=== PATIENT | male | born 1975 | race Hispanic/Latino ===

== ENCOUNTER 2023-03-23 15:00 | Observation (INO) | payer OTHER ==
[2023-03-24] MEDS ORDERED: PEG 3350/NA SULF,BICARB,CL/KCL 4000 ML SOLN PO ONE (18:00)
[2023-03-24 18:32] VITALS: BP 111/70; PULSE 59; RESP 19
[2023-03-24] MEDS: LACTULOSE 20 GM/30 ML UDCUP PO SCH ×3 (18:52→22:39)
[2023-03-24] MEDS: DEXTROSE 5 %-0.45 % NACL 1,000 ML IV SCH (18:52)
[2023-03-24 20:00] VITALS: BP 96/64; PULSE 65; RESP 20
[2023-03-24] MEDS ORDERED: POLY500P30 MC (20:21)
[2023-03-24] MEDS ORDERED: [UNRECOGNIZED DRUG - CODE] OP (20:21)
[2023-03-24] MEDS ORDERED: OLAN5TAB76 PO (20:21)
[2023-03-24] MEDS ORDERED: CHOL-34 PO (20:21)
[2023-03-24] MEDS ORDERED: BROM5CAP3 PO (20:21)
[2023-03-24] MEDS ORDERED: METO-408 PO (20:21)
[2023-03-24] MEDS ORDERED: CALC-125 PO (20:21)
[2023-03-24] MEDS ORDERED: TAMS-1 PO (20:21)
[2023-03-24] MEDS ORDERED: OLAN10TA73 PO (20:21)
[2023-03-24 20:36] LABS: BASOPHILS # (AUTO) 0.03 K/uL (0.00-0.20); BASOPHILS % (AUTO) 0.7 % (0.0-5.0); EOSINOPHILS # (AUTO) 0.14 K/uL (0.00-0.70); EOSINOPHILS % (AUTO) 3.3 % (0.0-8.0); HEMATOCRIT 34.8 % (42-54); LYMPHOCYTES # (AUTO) 1.7 K/uL (1.0-4.8); MEAN CORPUSCULAR HEMOGLOBIN 29.8 pg (27.0-33.0); MEAN CORPUSCULAR HGB CONC 32.8 g/dL (32.0-36.0); MEAN CORPUSCULAR VOLUME 90.9 fL (79-99); MONOCYTES # (AUTO) 0.3 K/uL (0.1-1.0); MONOCYTES % (AUTO) 7.4 % (3.0-13.0); NEUTROPHILS % (AUTO) 47.6 % (40.0-77.0); PLATELET COUNT (AUTO) 156 K/uL (130-400); RED BLOOD CELL COUNT(AUTO) 3.83 MIL/uL (4.50-6.20); RED CELL DISTRIBUTION WIDTH 15.7 % (11.0-15.5); WHITE BLOOD COUNT (AUTO) 4.2 K/uL (4.8-10.8)
[2023-03-24 20:49] LABS: ALBUMIN 3.1 g/dL (3.5-5.0); BILIRUBIN,TOTAL 0.4 mg/dL (0.2-1.0); CREATININE 0.9 mg/dL (0.5-1.5); POTASSIUM 4.1 mmol/L (3.5-5.1); TOTAL PROTEIN, SERUM 7.3 g/dL (6.0-8.3)
[2023-03-25] VITALS (21 sets, daily range): BP systolic 96–121; BP diastolic 55–86; PULSE 49–74; RESP 14–18; O2SAT 100
[2023-03-25] MEDS: LACTULOSE 20 GM/30 ML UDCUP PO SCH ×7 (00:38→13:00)
[2023-03-25] MEDS ORDERED: PROPOFOL 10 MG/ML 20ML VIAL IV ONE (10:52)
[2023-03-25] MEDS ORDERED: SIMETHICONE 40 MG/0.6 ML ML ONE (11:15)
[2023-03-25] MEDS: DEXTROSE 5 %-0.45 % NACL 1,000 ML IV SCH (14:00)
== END 2023-03-25 18:21 | disposition home or self-care (01) ==
LOC: EDSTATUS 15:00 → INTOOBSV 03-24 11:20 → DIRECT 03-24 11:20 → OBSVTOIN 03-24 11:20 → 4BH 03-24 18:10
PROVIDERS: ADMIT Internal Medicine Infectious Disease; ATTEND Internal Medicine Infectious Disease
DX: K64.0 First degree hemorrhoids (principal); D12.0 Benign neoplasm of cecum; K63.3 Ulcer of intestine; D50.9 Iron deficiency anemia, unspecified; K59.00 Constipation, unspecified; I10 Essential (primary) hypertension; I25.10 Atherosclerotic heart disease of native coronary artery without angina pectoris; E78.5 Hyperlipidemia, unspecified; N40.0 Benign prostatic hyperplasia without lower urinary tract symptoms; E87.1 Hypo-osmolality and hyponatremia; F79 Unspecified intellectual disabilities; F31.9 Bipolar disorder, unspecified; I25.2 Old myocardial infarction; Z86.73 Personal history of transient ischemic attack (TIA), and cerebral infarction without residual deficits; Z79.899 Other long term (current) drug therapy
CPT/HCPCS: 80053; 85025; 36415; 88305; 44389; G0378 ×7; J2704; A4620; A4215; A4223; A7002; A4222; A4216; J7030; A4606; J3490

== ENCOUNTER 2024-11-14 11:04 | Observation (INO) | payer OTHER ==
[~2024-11-14] VITALS: Ht 157.5 cm; Wt 59.5 kg
[~2024-11-14 11:04] MED LIST: BROM5CAP3 PO; CALC-125 PO; CHOL-34 PO; METO-408 PO; OLAN10TA73 PO; OLAN5TAB76 PO; POLY500P30 MC; TAMS-55 PO; [UNRECOGNIZED DRUG - CODE] OP
[2024-11-14] MEDS ORDERED: PoTASSium chloRIDE 20MEQ ER 20 MEQ ERTAB PO PRN (12:00)
[2024-11-14] MEDS ORDERED: PoTASSium chl 10% ELIXIR 20MEQ 20 MEQ/15 ML UDCUP PO PRN (12:00)
[2024-11-14] MEDS ORDERED: MAGNESIUM 2GM PREMIX 50ML 50 ML IV PRN (12:00)
--- NOTE | 2024-11-14 12:01 | HP ---
[facility] HISTORY AND PHYSICAL Date of Service: Nov 14, 2024 Time of Service: 11:54 HISTORY OF PRESENT ILLNESS: 49-year-old male past medical history of hypertension, autism, bipolar disorder, history of colostomy who presented to the hospital has a direct admission from GI clinic. Patient has autism and does not communicate. He is currently residing in [facility]. Patient's provider is present at bedside. History is fairly limited. History is mainly obtained from chart review and from GI physician. The patient was evaluated as outpatient by Dr. Russell with GI. Patient has a history of colostomy. Was unsure of how long he has had it. He was found to have ulcer of the intestine. He is also noted to have constipation and iron-deficiency anemia. He was evaluated by GI clinic as outpatient today. He was recommended to undergo colonoscopy. Patient was sent by GI physician for colonoscopy tomorrow. He will undergo bowel preparation prior to colonoscopy today. The patient does not communicate. History is fairly limited at this time. REVIEW OF SYSTEMS Unable to obtain since patient does not communicate PAST MEDICAL HISTORY: Hypertension, autism, bipolar disorder, history of intestinal ulcer, history of colostomy PAST SURGICAL HISTORY: Colostomy PAST SOCIAL HISTORY: Patient currently resides in [facility]. He is dependent on his ADLs and IADLs FAMILY HISTORY: Unable to obtain Coded Allergies: No Known Drug Allergies (Unverified Allergy, Unknown, 03/24/23) PHYSICAL EXAM GENERAL APPEARANCE: The patient is awake, alert, and oriented, in no acute cardiopulmonary distress. NEUROLOGICAL: Cranial nerves II-XII grossly intact. Motor is 5/5 in bilateral upper and lower extremities proximal to distal. No sensory deficits. HEENT: Face is symmetric. Pupils are equal and reactive. Extraocular movements are intact. NECK: Supple. No JVD. No thyromegaly. No submental, submandibular, pre- /postauricular, occipital or supraclavicular lymphadenopathy. CHEST: Normal chest expansion. No Telemetry. LUNGS: Absence of any rales, rhonchi or any wheezing. CARDIOVASCULAR: Regular. S1 and S2 normal. No appreciable rubs, murmurs or gallops. ABDOMEN: Soft, nontender, and nondistended. There is no rebound, voluntary guarding, or rigidity. Patient currently has a colostomy bag with greenish brown stool : Deferred. No Mosquera. EXTREMITIES: Non-edematous and not cyanotic. No clubbing. Good capillary refill. SKIN: No skin breakdown. Vital Sign (Last 24 Hours) 11/14/24 11:05 Temp 98.1 Pulse 65 Resp 16 B/P (MAP) 119/81 Pulse Ox 99 O2 Delivery Room Air O2 Flow Rate 0 LABS: Current Medications Medications (Trade) Dose Ordered Sig/Amanda Route PRN Reason Start Time Stop Time Status Last Admin Dose Admin Famotidine (Pepcid 20mg Vial) 20 mg BID IV 11/14/24 21:00 12/14/24 20:59 Magnesium Sulfate 50 ml @ 0 mls/hr PROTOCOL PRN IV HYPOMAGNESEMIA 11/14/24 12:00 12/14/24 11:59 Ondansetron HCl (zoFRAN 4MG INJ) 4 mg Q6H PRN IVP NAUSEA/VOMITING 11/14/24 12:00 12/14/24 11:59 Potassium Chloride 100 ml @ 100 mls/hr AD PRN IV POTASSIUM PROTOCOL 11/14/24 12:00 12/14/24 11:59 Potassium Chloride (K-Dur/Klor-Con 20meq) 20 meq AD PRN PO POTASSIUM PROTOCOL 11/14/24 12:00 12/14/24 11:59 Potassium Chloride (KCl 10% Elixir 20meq/15ml) 20 meq AD PRN PO POTASSIUM PROTOCOL 11/14/24 12:00 12/14/24 11:59 Sodium Chloride 1,000 ml @ 75 mls/hr [id number] IV 11/14/24 12:00 12/14/24 11:59 DIAGNOSTICS / RADIOLOGY: [ ] ASSESSMENT: Iron Deficiency anemia Possible Ulcer of the intestine Constipation Colostomy status Autism Intellectual disability Bipolar disorder PLAN: - patient to be admitted to medical-surgical unit -in reference to iron deficiency anemia, constipation, colostomy status and ulcer of the intestine. The patient we will undergo bowel preparation as per GI recommendations. Plan for colonoscopy for tomorrow. Patient will be NPO after midnight. -check CBC, CMP, PT INR -patient to be started on NS for gentle hydration -obtain patient's home medications which will be reconciled once available -further orders per hospitalization course. Advanced Care Planning Which of the following were discussed: Hospice care: Yes __ No _x_ Therapeutic options: Yes __ No __ Advance directives: Yes __ No __ Other discussions: Discussed with who?: patient and provider (Patient, family or surrogates) Voluntary nature of this service was explained to the patient? Yes _x_ No __ Amount of time spent: 25 minutes SHARLENE Box MD, MD Nov 14, 2024 12:01
--- NOTE | 2024-11-14 13:17 | NUR ---
assumed care at this time
[2024-11-14] MEDS ORDERED: LACTULOSE 20 GM/30 ML UDCUP PO SCH ×2 (13:30→14:00)
[2024-11-14 13:36] LABS: IMMATURE GRANULOCYTE ABSOLUTE 0.01 K/uL (0-1); NUCLEATED RED BLOOD CELLS 0.0 % (0.0-0.19); PLATELET COUNT (AUTO) 181 K/uL (130-400); RED BLOOD CELL COUNT(AUTO) 4.22 MIL/uL (4.50-6.20); RED CELL DISTRIBUTION WIDTH 15.0 % (11.0-15.5); WHITE BLOOD COUNT (AUTO) 5.1 K/uL (4.8-10.8)
[2024-11-14 13:41] LABS: INR 1.02 (0.85-1.15)
[2024-11-14 13:45] LABS: CREATININE 0.8 mg/dL (0.5-1.3); GLOMERULAR FILTR. RATE CALC 107.0 mL/min (>90); GLUCOSE,RANDOM 92.0 mg/dL (70-105); SODIUM SERUM 135.0 mmol/L (136-145); UREA NITROGEN, BLOOD 11.0 mg/dL (7-18)
[2024-11-14] MEDS: 0.9%NACL 1000ML 1,000 ML IV SCH (13:47)
[2024-11-14] MEDS: LACTULOSE 20 GM/30 ML UDCUP PO ONE (13:47)
[2024-11-14 13:50] LABS: ASPARTATE AMINOTRANSFERASE 39.0 U/L (10-37); TOTAL PROTEIN, SERUM 7.6 g/dL (6.0-8.3)
[2024-11-14] MEDS: MAGNESIUM CITRATE 296 ML SOLUTION PO ONE (14:18)
[2024-11-14 15:54] VITALS: BP 112/73; PULSE 81; RESP 17; TEMP 97.8
--- NOTE | 2024-11-14 15:55 | NUR ---
RECEIVED PATIENT FROM ER PATIENT TRANSFERRED TO BED AND ORIENTATED TO ROOM. STAFF FROM [facility] AT BEDSIDE. PATIENT NON VERBAL. NO O2 WAS NEEDED. BEDSIDE SET NEAR PATIENT. FLUIDS WERE CONNECTED AND VITALS WERE CHECKED. BED SET TO LOWEST SETTING WITH BED ALARM ON.
[2024-11-14] MEDS ORDERED: PEG 3350/NA SULF,BICARB,CL/KCL 4000 ML SOLN PO ONE (16:00)
[2024-11-14] MEDS: LACTULOSE 20 GM/30 ML UDCUP PO SCH (16:17)
[2024-11-14] MEDS: PEG 3350/NA SULF,BICARB,CL/KCL 4000 ML SOLN PO ONE (16:17)
[2024-11-14 20:00] VITALS: BP 118/80; PULSE 72; RESP 16; TEMP 97.8
[2024-11-14] MEDS: FAMOTIDINE 20MG VIAL IV SCH (20:28)
[2024-11-14 20:37] LABS: CREATININE 0.8 mg/dL (0.5-1.3); GLOMERULAR FILTR. RATE CALC 107.0 mL/min (>90); GLUCOSE,RANDOM 126.0 mg/dL (70-105); SODIUM SERUM 137.0 mmol/L (136-145); UREA NITROGEN, BLOOD 9.0 mg/dL (7-18)
[2024-11-14] MEDS ORDERED: CALC-866 PO (21:14)
[2024-11-14] MEDS ORDERED: LACT1TAB4 PO (21:14)
[2024-11-14] MEDS ORDERED: TAMS-55 PO (21:14)
[2024-11-14] MEDS ORDERED: POLY17PO52 PO (21:14)
[2024-11-14] MEDS ORDERED: CALC-125 PO (21:14)
[2024-11-14] MEDS ORDERED: OLAN5TAB76 PO (21:14)
[2024-11-14] MEDS ORDERED: CARB15DR2 OP (21:14)
[2024-11-14] MEDS ORDERED: BISA-151 PO (21:14)
[2024-11-14] MEDS ORDERED: SIME80TA12 PO (21:14)
[2024-11-15] VITALS (21 sets, daily range): BP systolic 91–119; BP diastolic 51–83; PULSE 55–82; RESP 15–25; TEMP 97.3–97.8; O2SAT 95
[2024-11-15 04:33] LABS: IMMATURE GRANULOCYTE ABSOLUTE 0.01 K/uL (0-1); NUCLEATED RED BLOOD CELLS 0.0 % (0.0-0.19); PLATELET COUNT (AUTO) 182 K/uL (130-400); RED BLOOD CELL COUNT(AUTO) 3.96 MIL/uL (4.50-6.20); RED CELL DISTRIBUTION WIDTH 15.3 % (11.0-15.5); WHITE BLOOD COUNT (AUTO) 3.8 K/uL (4.8-10.8)
[2024-11-15 04:41] LABS: INR 1.08 (0.85-1.15)
[2024-11-15 04:50] LABS: ASPARTATE AMINOTRANSFERASE 27.0 U/L (10-37); CREATININE 0.7 mg/dL (0.5-1.3); GLOMERULAR FILTR. RATE CALC 112.0 mL/min (>90); GLUCOSE,RANDOM 88.0 mg/dL (70-105); SODIUM SERUM 137.0 mmol/L (136-145); TOTAL PROTEIN, SERUM 6.4 g/dL (6.0-8.3); UREA NITROGEN, BLOOD 8.0 mg/dL (7-18)
--- NOTE | 2024-11-15 05:50 | NUR ---
CONSENT SPOKE WITH [facility] NURSE [phone] STATED THAT USUALLY A VERBAL CONSENT CAN BE OBTAINED BY INTERNATIONAL TRADE TEACHER. STATED WILL ASK THE DAY NURSE IF CAN CALL [facility] NURSE BACK AFTER 6AM TO GET A TELEPHONE CONSENT, NURSE STATION NUMBER PROVIDED TO [facility] NURSE. PLAN IS ONGOING.
[2024-11-15] MEDS ORDERED: LIDOCAINE HCL 1% 20 ML VIAL ONE (07:08)
[2024-11-15] MEDS: ARTIFICAL TEARS SOL 15 ML OP SCH (08:49)
[2024-11-15] MEDS: CALCIUM CARB 500MG PO SCH (08:50)
--- NOTE | 2024-11-15 10:52 | NUR ---
DCP:HOME Pt is a resident of [facility] and has been there since 2021. Pt does not have DME at [facility]. As per event sales representative in room, pt is able to complete ADLs independently and has a communication device that he uses. At [place] pt will be returning to [facility] and the number to call report is [phone]. Addendum: 11/15/24 at 1054 by MARLA LIZARRAGA SS Amended: Links added.
--- NOTE | 2024-11-15 16:48 | DS ---
Discharge Summary Hospital Course Summary: 49-year-old male past medical history of hypertension, autism, bipolar disorder, history of colostomy who presented to the hospital has a direct admission from GI clinic. Patient has autism and does not communicate. He is currently residing in [facility]. Patient's provider is present at bedside. History is fairly limited. History is mainly obtained from chart review and from GI physician. The patient was evaluated as outpatient by Dr. Russell with GI. Patient has a history of colostomy. Was unsure of how long he has had it. He was found to have ulcer of the intestine. He is also noted to have constipation and iron-deficiency anemia. He was evaluated by GI clinic as outpatient today. He was recommended to undergo colonoscopy. Patient was sent by GI physician for colonoscopy tomorrow. He will undergo bowel preparation prior to colonoscopy today. The patient does not communicate. History is fairly limited at this time. Patient underwent colonoscopy which showed 2 ulcers at the surgical stoma-likely from trauma vs other. Biopsied. The examined portion of the ileum was normal. The transverse colon, ascending colon and cecum are normal. Recommended discharge patient to home (ambulatory). High fiber diet daily. Await pathology results. Cipro(ciprofloxacin) 500 mg PO BID for 10 days. Repeat colonoscopy at appoinment to be scheduled for surveillance based on pathology. Patient got an appointment for November 30 with [facility]. Return to primary care physician as previously scheduled. Miralax 1 capful(17 grams) in 8 ounces of water PO daily for 6 months. Spoke with doctor at the center where the patient resides and after discussing the details of the colonoscopy she agreed to send a vehicle for the patient. Discharging the patient to the center. Information Systems Technician(s): Gastroenterology - Dr. Russell Procedure(s): Colonoscopy - colonoscopy showed 2 ulcers at the surgical stoma-likely from trauma vs other. Biopsied. The examined portion of the ileum was normal. The transverse colon, ascending colon and cecum are normal. Recommended discharge patient to home (ambulatory). High fiber diet daily. Await pathology results. Cipro(ciprofloxacin) 500 mg PO BID for 10 days. Repeat colonoscopy at appoinment to be scheduled for surveillance based on pathology. Patient got an appointment for November 30 with [facility]. Return to primary care physician as previously scheduled. Miralax 1 capful(17 grams) in 8 ounces of water PO daily for 6 months. Assessment/Plan: ASSESSMENT: Iron Deficiency anemia Possible Ulcer of the intestine Constipation Colostomy status Autism Intellectual disability Bipolar disorder PLAN: Admission Date: 11/14/24 Discharge Date: 11/15/24 Disposition: Home Condition: Stable Activity: As tolerated Home medications: Continued Discharge medications: Ciprofloxacin 500 mg Follow-up appointment: Follow up with Tammy Rizzo reinforced the importance of medication adherence and follow-up appointments. Discharge Instructions: Continue taking antibiotics as prescribed, Ciprofloxacin 500 mg p.o. b.i.d. for 10 days Continue taking MiraLax 1 capful (17 g) in 8 oz of water p.o. daily for 6 months Follow up with primary care physician within 2-3 days of discharge Follow up with textile machine mechanic on November 30 at 3:00 p.m. Home Medications: Active Scripts Polyethylene Glycol 3350 (Miralax) 17 Gram Powd.pack, 1 PACKET PO DAILY for constipation, #30 PACKET 0 Refills dissolve in water Prov:THIAGO SEE MD 11/15/24 Ciprofloxacin HCl (Ciprofloxacin HCl) 500 Mg Tablet, 1 TAB PO BID for 10 Days, #20 TAB 0 Refills Prov:THIAGO SEE MD 11/15/24 Reported Medications Carboxymethylcellulos/Glycerin (Refresh Optive Eye Drops) 0.5 %-0.9 % Drops, 3 DROP OP BID for dry eyes for 30 Days, #30 ML 0 Refills 11/14/24 Cholecalciferol (Vitamin D3) (Vitamin D3) 125 Mcg (5000 Unit) Tablet, 125 MCG PO QWEEK, TAB 11/14/24 Tamsulosin HCl (Flomax) 0.4 Mg Cap.er.24h, 0.4 MG PO HS, CAPSULE. 11/14/24 Simethicone (Simethicone) 80 Mg Tab.chew, 1 TAB PO QID PRN for GI UPSET/UPSET STOMACH for 6 Days, #20 TAB 0 Refills 11/14/24 Polyethylene Glycol 3350 (Polyethylene Glycol 3350) 17 Gram Powd.pack, 17 GM PO BID 11/14/24 Olanzapine (Olanzapine) 5 Mg Tablet, 5 MG PO BID, TAB 11/14/24 Lactobacillus Acidophilus (Acidophilus) 1 Each Tab.chew, 1 EACH PO DAILY, TAB.CHEW 11/14/24 Calcium Carbonate (Calcium Carbonate) 500 Mg Calcium (1250 Mg) Tablet, 1 TAB PO TID for 30 Days, #60 TAB 0 Refills 11/14/24 Bisacodyl (Bisacodyl) 5 Mg Tablet.dr, 5 MG PO DAILY, TAB 11/14/24 New Medications: Ciprofloxacin HCl (Ciprofloxacin HCl) 500 Mg Tablet 1 TAB PO BID for 10 Days, #20 TAB 0 Refills Polyethylene Glycol 3350 (Miralax) 17 Gram Powd.pack 1 PACKET PO DAILY for constipation, #30 PACKET 0 Refills dissolve in water Continued Medications: Bisacodyl (Bisacodyl) 5 Mg Tablet.dr 5 MG PO DAILY, TAB Calcium Carbonate (Calcium Carbonate) 500 Mg Calcium (1250 Mg) Tablet 1 TAB PO TID for 30 Days, #60 TAB 0 Refills Carboxymethylcellulos/Glycerin (Refresh Optive Eye Drops) 0.5 %-0.9 % Drops 3 DROP OP BID for dry eyes for 30 Days, #30 ML 0 Refills Cholecalciferol (Vitamin D3) (Vitamin D3) 125 Mcg (5000 Unit) Tablet 125 MCG PO QWEEK, TAB Lactobacillus Acidophilus (Acidophilus) 1 Each Tab.chew 1 EACH PO DAILY, TAB.CHEW Olanzapine (Olanzapine) 5 Mg Tablet 5 MG PO BID, TAB Polyethylene Glycol 3350 (Polyethylene Glycol 3350) 17 Gram Powd.pack 17 GM PO BID Simethicone (Simethicone) 80 Mg Tab.chew 1 TAB PO QID PRN for GI UPSET/UPSET STOMACH for 6 Days, #20 TAB 0 Refills Tamsulosin HCl (Flomax) 0.4 Mg Cap.er.24h 0.4 MG PO HS, CAPSULE. Time spent arranging discharge: 31-60 minutes ATTESTATION BY PHYSICIAN I have seen and examined the patient. I reviewed the documentation, medical decision making, and treatment plan as noted by the resident provider above. I agree with the findings and plan of care. Raymundo De Paz MD, ABHINAV MD Nov 15, 2024 16:48
[2024-11-15] MEDS ORDERED: CIPR-514 PO (17:04)
[2024-11-15] MEDS ORDERED: POLY17PO4 PO (17:06)
--- NOTE | 2024-11-15 17:09 | NUR ---
NURSING NOT CALLED REPORT OT [facility] NURSE. PENDING ENTRY LEVEL STAFF ACCOUNTANT
--- NOTE | 2024-11-15 18:27 | NUR ---
PATIENT DISCHARGED TO [facility] ID BAND AND IV REMOVED. DISCHARGE INSTRUCTIONS EXPLAINED AND GIVEN TO CAREGIVER AT BEDSIDE. CAREGIVER VERBALIZED UNDERSTANDING. BELONGINGS PACKED AND TAKEN BY CAREGIVERS. WHEELED DOWN TO FACILITY CAR.
== END 2024-11-15 18:25 | disposition home or self-care (01) ==
LOC: EDH 11:04 → INTOOBSV 11:05 → EDHIP 11:05 → 3BH 15:54
PROVIDERS: ADMIT Internal Medicine; ATTEND Internal Medicine
DX: D50.9 Iron deficiency anemia, unspecified (principal); K59.00 Constipation, unspecified; F84.0 Autistic disorder; F79 Unspecified intellectual disabilities; F31.9 Bipolar disorder, unspecified; I10 Essential (primary) hypertension; Z93.3 Colostomy status; Z79.899 Other long term (current) drug therapy
CPT/HCPCS: 96374; 83036; 80053 ×2; 85025 ×2; 85610 ×2; 86850; 86900; 86901; 36415 ×2; 96376; 88305; 44389; J3490 ×3; J7030; G0378 ×5; J2704; A4620; A4215; 80048